=== PATIENT | male | born 1995 | race Caucasian/White ===

== ENCOUNTER → 2020-05-02 | Outpatient (CLI) | payer OTHER ==
--- NOTE | 2020-05-02 13:16 | XR ---
EXAMINATION TYPE: XR hand complete RT DATE OF EXAM: 05/02/2020 COMPARISON: NONE HISTORY: Pain TECHNIQUE: Three views are submitted. FINDINGS: The osseous structures are intact. The joint spaces are preserved and there is no acute fracture or dislocation. Soft tissue injury involving the second digit. IMPRESSION: 1. No definite acute fracture or dislocation if symptoms persist, follow-up study in 7 to 10 days wo uld be suggested. Findings suggest soft tissue injury involving the second digit.
== END | disposition home or self-care (01) ==
LOC: RADXRMAIN 12:51
PROVIDERS: ATTEND Emergency Medicine
DX: S60.021A Contusion of right index finger without damage to nail, initial encounter (principal)

== ENCOUNTER → 2023-05-06 | Outpatient (CLI) | payer OTHER ==
--- NOTE | 2023-05-06 11:44 | XR ---
EXAMINATION TYPE: XR finger LT DATE OF EXAM: 05/06/2023 COMPARISON: NONE HISTORY: Pain TECHNIQUE: Three views are submitted. FINDINGS: There is a fracture of the tuft of the distal phalanx with comminution. Minimal displacement. Adjacen t soft tissue edema. IMPRESSION: 1. Comminuted minimally displaced fracture tuft distal phalanx second digit.
== END | disposition home or self-care (01) ==
LOC: EDBD 11:19 → RADXRMAIN 11:19
PROVIDERS: ATTEND Emergency Medicine
DX: S62.631A Displaced fracture of distal phalanx of left index finger, initial encounter for closed fracture (principal); S67.191A Crushing injury of left index finger, initial encounter

== ENCOUNTER 2024-06-14 16:12 | Emergency (ER) | payer OTHER ==
[2024-06-14 16:31] VITALS: RESP 18
--- NOTE | 2024-06-14 16:54 | ED ---
Head Injury HPI - General Chief complaint: Head Injury Stated complaint: head injury Time Seen by Provider: 06/14/24 16:33 Source: patient, RN notes reviewed Mode of arrival: ambulatory Limitations: no limitations - History of Present Illness Initial comments: 29-year-old female with no significant past medical history presenting to the ER with head injury 1 hour ago. States he was at work when he was lifting a jar back on the shelf, when the shelf broke and fell on top of his head. Denies loss of consciousness. States he has a cut on the top of his head that initially bled but denies active bleeding. Denies any current symptoms such as headache, vision changes, nausea, vomiting, lightheadedness. Last tetanus unknown. - Related Data Allergies/Adverse reactions: Allergies Allergy/AdvReac Type Severity Reaction Status Date / Time No Known Allergies Allergy Verified 06/14/24 16:31 Review of Systems ROS Statement: Those systems with pertinent positive or pertinent negative responses have been documented in the HPI. ROS Other: All systems not noted in ROS Statement are negative. Past Medical History Past Medical History: No Reported History History of Any Multi-Drug Resistant Organisms: None Reported Past Surgical History: No Surgical Hx Reported Past Psychological History: No Psychological Hx Reported Smoking Status: Never smoker Past Alcohol Use History: None Reported Past Drug Use History: None Reported General Exam Limitations: no limitations General appearance: alert, in no apparent distress Head exam: Present: atraumatic, normocephalic, other (1cm laceration present on top of scalp, no active bleeding. no drainage, no ttp) Eye exam: Present: normal appearance, PERRL, EOMI. Absent: scleral icterus, conjunctival injection, periorbital swelling Pupils: Present: normal accommodation ENT exam: Present: normal exam, mucous membranes moist Respiratory exam: Present: normal lung sounds bilaterally. Absent: respiratory distress, wheezes, rales, rhonchi, stridor Cardiovascular Exam: Present: regular rate, normal rhythm, normal heart sounds. Absent: systolic murmur, diastolic murmur, rubs, gallop, clicks Neurological exam: Present: alert, oriented X3, CN II-XII intact Psychiatric exam: Present: normal affect, normal mood Skin exam: Present: warm, dry, intact, normal color. Absent: rash Course Vital Signs 06/14/24 06/14/24 16:27 17:53 Temperature 98.1 F 97.9 F Pulse Rate 108 H 92 Respiratory 18 18 Rate Blood Pressure 143/84 139/89 O2 Sat by Pulse 98 98 Oximetry Procedures - Laceration Laceration #1 Consent Obtained: verbal consent Indication: laceration Site: scalp Size (cm): 1 Description: linear Depth: simple, single layer Pre-repair: wound explored, irrigated extensively, deep structures intact Patient Tolerated Procedure: well, no complications Additional Comments: 1 staple placed with no complication Medical Decision Making - Medical Decision Making Was pt. sent in by a medical professional or institution (, PA, MANUAL WRITER, urgent care, hospital, or alf...) When possible be specific @ -Sent by employer Did you speak to anyone other than the patient for history (EMS, parent, family, police, friend...)? What history was obtained from this source @ -No Did you review nursing and triage notes (agree or disagree)? Why? @ -I reviewed and agree with nursing and triage notes Were old charts reviewed (outside hosp., previous admission, EMS record, old EKG, old radiological studies, urgent care reports/EKG's, alf records)? Report findings @ -No old charts were reviewed Differential Diagnosis (chest pain, altered mental status, abdominal pain women, abdominal pain men, vaginal bleeding, weakness, fever, dyspnea, syncope, headache, dizziness, GI bleed, back pain, seizure, CVA, palpatations, mental health, musculoskeletal)? @ -Differential Musculoskeletal Intracranial bleed, skull fracture, muscular strain, contusion, ligament sprain, fracture, arthritis, septic arthritis, bursitis, cellulitis, muscle spasm, nerve compression, DVT, arterial occlusion, herpes zoster, electrolyte abnormality, tumor.... This is not meant to be in all inclusive list EKG interpreted by me (3pts min.). @ -None X-rays interpreted by me (1pt min.). @ -None done CT interpreted by me (1pt min.). @ -CT head considered however deferred at this time as there is no red flag symptoms and patient is currently asymptomatic U/S interpreted by me (1pt. min.). @ -None done What testing was considered but not performed or refused? (CT, X-rays, U/S, labs)? Why? @ -None What meds were considered but not given or refused? Why? @ -None Did you discuss the management of the patient with other professionals (professionals i.e. DrChloe, PA, MANUAL WRITER, lab, RT, psych nurse, long term care social worker, wet mix operator, teacher, cavalry officer, case briefer)? Give summary @ -No Was smoking cessation discussed for >3mins.? @ -No Was critical care preformed (if so, how long)? @ -No Were there social determinants of health that impacted care today? How? (Homelessness, low income, unemployed, alcoholism, drug addiction, transportation, low edu. Level, literacy, decrease access to med. care, prison, rehab)? @ -No Was there de-escalation of care discussed even if they declined (Discuss DNR or withdrawal of care, Hospice)? DNR status @ -No What co-morbidities impacted this encounter? (DM, HTN, Smoking, COPD, CAD, Cancer, CVA, ARF, Chemo, Hep., AIDS, mental health diagnosis, sleep apnea, morbid obesity)? @ -None Was patient admitted / discharged? Hospital course, mention meds given and route, prescriptions, significant lab abnormalities, going to OR and other pertinent info. @ -Discharged. This is a 29-year-old male presenting with head injury 1 hour ago at work. States he was placing a drawer on a shelf and it broke, hitting the top of his head. Denies loss of consciousness. Denies blood thinners. No red flag symptoms. Currently asymptomatic. He was sent by his employer for urine drug screen and bat. Patient is mildly tachycardic upon initial evaluation, however resolves within normal limits upon reevaluation. All other vital signs within normal limits. Upon examination there is a 1 cm laceration on top of scalp with no active bleeding. Tetanus was updated. 1 staple was placed. Advised to follow-up in 7 days for staple removal. Supportive care discussed as well as return precautions and patient is agreeable to plan. Case was discussed with the ED attending Dr. Peterson. Patient discharged in stable condition. Undiagnosed new problem with uncertain prognosis? @ -No Drug Therapy requiring intensive monitoring for toxicity (Heparin, Nitro, Insulin, Cardizem)? @ -No Were any procedures done? @ -No Diagnosis/symptom? @ -Head laceration Acute, or Chronic, or Acute on Chronic? @ -Acute Uncomplicated (without systemic symptoms) or Complicated (systemic symptoms)? @ -Uncomplicated Side effects of treatment? @ -No Exacerbation, Progression, or Severe Exacerbation? @ -No Poses a threat to life or bodily function? How? (Chest pain, USA, OR, pneumonia, PE, COPD, DKA, ARF, appy, cholecystitis, CVA, Diverticulitis, Homicidal, Suicidal, threat to staff... and all critical care pts) @ -No Disposition Clinical Impression: Laceration of head Disposition: HOME SELF-CARE Condition: Stable Instructions (If sedation given, give patient instructions): Staple Care (ED), Head Laceration (ED) Additional Instructions: Follow-up in 7 days for staple removal. Please return to the Emergency Department if symptoms worsen or any other concerns. Is patient prescribed a controlled substance at d/c from ED?: No Referrals: None,Stated [Primary Care Provider] - 1-2 days Time of Disposition: 17:41
[2024-06-14] MEDS: DIPH,PERTUS(ACELL)TETVAC-LF 0.5 ML VIAL IM ONE (17:09)
[2024-06-14 17:56] VITALS: BP 139/89; PULSE 92; TEMP 97.9
== END 2024-06-14 17:59 | disposition home or self-care (01) ==
LOC: EC 16:12
CPT/HCPCS: 12001; 90471; 90715; 99283